=== PATIENT | female | born 1975 | race Two or more races ===

== ENCOUNTER 2024-11-21 16:06 | Emergency (ER) | payer OTHER ==
[~2024-11-21] VITALS: Ht 167.6 cm; Wt 71.2 kg
[2024-11-21] MEDS ORDERED: 0.9 % SODIUM CHLORIDE 1,000 ML IV STA (16:56)
[2024-11-21] MEDS ORDERED: KETOROLAC TROMETHAMINE 30 MG VIAL IV STA (16:57)
[2024-11-21] MEDS ORDERED: MEPERIDINE HCL/PF 50 MG/ML VIAL IM STA (16:58)
[2024-11-21] MEDS ORDERED: PROMETHAZINE HCL 50 MG/ML AMPUL IM STA (16:58)
[2024-11-21] MEDS ORDERED: HYOSCYAMINE SULFATE 0.125 MG TAB.SUBL SL ONE (17:00)
[2024-11-21] MEDS ORDERED: HYOSCYAMINE SULFATE 0.125 MG TAB.SUBL ONE (17:22)
[2024-11-21] MEDS ORDERED: PROMETHAZINE HCL 50 MG/ML AMPUL IM ONE (17:22)
[2024-11-21] MEDS ORDERED: KETOROLAC TROMETHAMINE 30 MG VIAL ONE (17:22)
[2024-11-21 17:57] LABS: HEMATOCRIT 36.2 % (36.0-45.00); HEMOGLOBIN 11.9 g/dL (12.0-15.00); MEAN CORPUSCULAR HEMOGLOBIN 28.6 pg (27.00-32.0); MEAN CORPUSCULAR HGB CONC 32.8 g/dl (32.0-36.0); PLATELET COUNT 161 K/uL (150-450); RED BLOOD COUNT 4.17 M/uL (4.00-6.00); RED CELL DISTRIBUTION WIDTH 13.5 % (11.5-14.5)
[2024-11-21 18:43] LABS: ALBUMIN 3.2 gm/dL (3.4-5.0); BILIRUBIN TOTAL 0.39 mg/dL (0.3-1.2); CALCIUM 8.3 mg/dL (8.5-10.1); CREATININE SERUM 1.2 mg/dL (0.55-1.02); GFR 47.95; GLOBULINA 3.9 G/DL (2.4-3.5); POTASSIUM 4.52 mEq/L (3.5-5.1); TOTAL PROTEIN 7.1 gm/dL (6.4-8.2)
[2024-11-21 21:33] LABS: URINE APPEARANCE Cloudy; URINE BILIRRUBIN Negative (NEGATIVE); URINE BLOOD Large; URINE COLOR Red; URINE GLUCOSE Negative (NEGATIVE); URINE KETONE Negative (NEGATIVE); URINE LEUKOCYTE Large; URINE NITRATE Negative; URINE UROBILINOGEN 0.2 E.U./dl
[2024-11-21 21:37] LABS: URINE BACTERIA 118.7 uL (0.0-1933); URINE RBC 10174.7 uL (0.0-20.8); URINE WBC 678.9 uL (0.0-23.2)
[2024-11-21 21:41] LABS: URINE EPITHELIAL CELLS 0.6 uL (0.0-38.8); URINE PROTEIN 100 (NEGATIVE)
== END 2024-11-21 22:06 | disposition home or self-care (01) ==
LOC: ER 16:08
DX: R10.9 Unspecified abdominal pain (principal); Z88.1 Allergy status to other antibiotic agents; Z91.013 Allergy to seafood

== ENCOUNTER 2025-03-12 19:55 | Emergency (ER) | payer OTHER ==
[~2025-03-12] VITALS: Ht 167.6 cm; Wt 68.5 kg
[2025-03-12] MEDS ORDERED: FAMOTIDINE/PF 20 MG/2 ML VIAL IV ONE (21:00)
[2025-03-12] MEDS ORDERED: FAMOTIDINE/PF 20 MG/2 ML VIAL ONE (21:10)
[2025-03-12] MEDS ORDERED: LOPERAMIDE HCL 2 MG CAPSULE PO ONE ×2 (21:10→21:15)
[2025-03-12] MEDS ORDERED: 0.9 % SODIUM CHLORIDE 500 ML IV ONE (21:15)
[2025-03-12 21:21] LABS: BASO % 0.7 % (0.1-1.2); EOS # 0.13 (0.04-0.54); EOS % 2.8 % (0.7-7.0); HEMATOCRIT 38.7 % (34.1-44.9); HEMOGLOBIN 12.6 g/dL (11.2-15.7); LYMPH # 1.63 (1.18-3.74); LYMPH % 35.6 % (19.3-53.1); MEAN CORPUSCULAR HEMOGLOBIN 28.2 pg (25.6-32.2); MONO # 0.41 (0.24-0.82); NEUT # 2.37 (1.56-6.13); NEUT % 51.7 % (34.0-71.1); PLATELET COUNT 215 K/uL (163-369); RED BLOOD COUNT 4.47 M/uL (3.93-5.22); RED CELL DISTRIBUTION WIDTH 14.2 % (11.6-14.4)
[2025-03-12 21:26] LABS: URINE APPEARANCE Cloudy; URINE BILIRRUBIN Negative (NEGATIVE); URINE BLOOD Large; URINE COLOR Yellow; URINE GLUCOSE Negative (NEGATIVE); URINE KETONE Trace (NEGATIVE); URINE LEUKOCYTE Large; URINE NITRATE Negative; URINE PROTEIN 30 (NEGATIVE); URINE UROBILINOGEN 0.2 E.U./dl
[2025-03-12 21:28] LABS: URINE BACTERIA 1128.4 uL (0.0-1933); URINE EPITHELIAL CELLS 2.6 uL (0.0-38.8); URINE RBC 221.8 uL (0.0-20.8); URINE WBC 721.9 uL (0.0-23.2)
[2025-03-12 21:31] LABS: URINE CAST 0.14 uL (0.0-1.40)
[2025-03-12 21:48] LABS: CALCIUM 8.8 mg/dL (8.5-10.1); CREATININE SERUM 0.83 mg/dL (0.55-1.02); GFR 73.06; POTASSIUM 3.54 mEq/L (3.5-5.1)
== END 2025-03-12 22:36 | disposition home or self-care (01) ==
LOC: ER 20:43
PROVIDERS: General Practice
DX: A05.9 Bacterial foodborne intoxication, unspecified (principal); K52.9 Noninfective gastroenteritis and colitis, unspecified; N39.0 Urinary tract infection, site not specified; Z91.013 Allergy to seafood; Z88.8 Allergy status to other drugs, medicaments and biological substances